=== PATIENT | female | born 1985 | race Caucasian/White ===

== ENCOUNTER 2017-07-05 06:18 | Emergency (ER) | payer MEDICAID ==
[~2017-07-05] VITALS: Ht 175.3 cm; Wt 77.1 kg
[2017-07-05] MEDS ORDERED: ONDANSETRON 4 MG TAB.RAPDIS SL ONE (06:30)
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
[2017-07-05] MEDS ORDERED: ONDANSETRON 4 MG TAB.RAPDIS ONE (06:35)
--- NOTE | 2017-07-05 06:40 | NUR ---
DR. RAY AT BEDSIDE FOR EVAL.
[2017-07-05] MEDS ORDERED: MECLIZINE HCL 25 MG TABLET ONE (06:47)
[2017-07-05] MEDS ORDERED: MECLIZINE HCL 25 MG TABLET PO ONE (07:00)
--- NOTE | 2017-07-05 07:10 | NUR ---
DR. RAY AT BEDSIDE SPEAKIN TO PT REGARDING RESULTS.
--- NOTE | 2017-07-05 07:18 | NUR ---
Patient discharged to home in stable condition. Written and verbal after care instructions given. Patient verbalizes understanding of instruction. ambulatory with a steady gait. instructed not to drive. pt verbalize understanding. pt accompanied by boyfriend.
[2017-07-05 07:19] VITALS: BP 110/54
== END 2017-07-05 07:20 | disposition home or self-care (01) ==
LOC: ER 06:18
DX: R42 Dizziness and giddiness (principal); S39.012A Strain of muscle, fascia and tendon of lower back, initial encounter; F17.200 Nicotine dependence, unspecified, uncomplicated; F10.10 Alcohol abuse, uncomplicated; Z88.0 Allergy status to penicillin; V03.90XA Pedestrian on foot injured in collision with car, pick-up truck or van, unspecified whether traffic or nontraffic accident, initial encounter; Y93.89 Activity, other specified; Y92.413 State road as the place of occurrence of the external cause; Y99.8 Other external cause status
CPT/HCPCS: 99283; A4606; J8597; Q0162; Z7610

== ENCOUNTER 2017-07-10 09:53 | Emergency (ER) | payer MEDICAID ==
[~2017-07-10] VITALS: Ht 175.3 cm; Wt 81.6 kg
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
[2017-07-10 10:26] VITALS: BP 130/60
--- NOTE | 2017-07-10 10:26 | NUR ---
Patient discharged to home in stable condition. Written and verbal after care instructions given. Patient verbalizes understanding of instruction.
== END 2017-07-10 10:27 | disposition home or self-care (01) ==
LOC: ER 09:55
DX: M70.32 Other bursitis of elbow, left elbow (principal); Z88.0 Allergy status to penicillin; F17.200 Nicotine dependence, unspecified, uncomplicated; Y93.9 Activity, unspecified
CPT/HCPCS: 99283; A4606; Z7610

== ENCOUNTER 2017-07-19 00:07 | Emergency (ER) | payer MEDICAID ==
[~2017-07-19] VITALS: Ht 175.3 cm; Wt 81.6 kg
--- NOTE | 2017-07-19 00:40 | NUR ---
Assist YULIANA Navarrete w/ pelvic exam. Pelvic swabs obtained & sent to lab. pt tolerated procedure well w/ nad noted.
[2017-07-19 00:51] LABS: APPEARANCE,URINE SL CLOUDY (CLEAR); BILIRUBIN,URINE NEGATIVE (NEGATIVE); BLOOD, URINE 3+ Ery/uL (NEGATIVE); COLOR,URINE YELLOW (YELLOW); KETONES,URINE NEGATIVE (NEGATIVE); LEUKOCYTE ESTERASE ,URINE 1+ (NEGATIVE); NITRITE, URINE NEGATIVE (NEGATIVE); PH,URINE 5.5 (5.0-8.0); PROTEIN,URINE TRACE mg/dl (NEGATIVE); UGLUCOSE NEGATIVE (NEGATIVE); UROBILINOGEN,URINE 0.2 EU/dL (0.2)
[2017-07-19 00:59] LABS: BACTERIA,URINE 1+ /HPF (None Seen); SQUAMOUS EPITHELIAL CELL,UR Many /HPF (None Seen)
[2017-07-19 01:05] VITALS: BP 128/82
== END 2017-07-19 01:05 | disposition home or self-care (01) ==
LOC: ER 00:07
DX: B00.9 Herpesviral infection, unspecified (principal); R82.99 Other abnormal findings in urine; F17.200 Nicotine dependence, unspecified, uncomplicated; Z88.0 Allergy status to penicillin
CPT/HCPCS: 81001; 84703; 87070; 87077; 87081; 87086; 87110; 87210; 99284; 99406; A4606; Z7610; 81000-TC

== ENCOUNTER 2021-04-04 20:53 | Emergency (ER) | payer OTHER ==
[~2021-04-04] VITALS: Ht 175.3 cm; Wt 86.2 kg
--- NOTE | 2021-04-04 20:56 | NUR ---
pt bibself c/o vaginal bleeding x today. Pt aaox4 breathing evenly and unlabored. Pt states that she "discovered she was pregnat 1.5 weeks ago, but is unsure of how far along she is". Pt attached to monitor and pox. Pt denies trauma or pain. Pt given blanket and call light within reach
--- NOTE | 2021-04-04 21:35 | NUR ---
URINE COLLECTED, SENT TO LAB.
--- NOTE | 2021-04-04 21:37 | NUR ---
lab at bedside
[2021-04-04 21:39] LABS: BILIRUBIN,URINE MODERATE (NEGATIVE); COLOR,URINE AMBER (YELLOW); LEUKOCYTE ESTERASE ,URINE Negative (NEGATIVE); NITRITE, URINE Negative (NEGATIVE); PH,URINE 5.5 (5.0-8.0); PROTEIN,URINE >=300 mg/dl (NEGATIVE); UGLUCOSE Negative (NEGATIVE)
[2021-04-04 21:44] LABS: BASOPHILS % (AUTO) 0.7 % (0.0-2.0); EOSINOPHILS % (AUTO) 1.7 % (0.0-6.0); HEMATOCRIT 35 % (33-45); HEMOGLOBIN 10.9 g/dL (11.5-14.8); LYMPHOCYTES # (AUTO) 1.7 K/uL (0.8-4.8); LYMPHOCYTES % (AUTO) 25.1 % (20.0-44.0); MEAN CORPUSCULAR HGB CONC 31 g/dl (31.0-36.0); MEAN CORPUSCULAR VOLUME 74 fL (82-100); MONOCYTES # (AUTO) 0.4 K/uL (0.1-1.30); MONOCYTES % (AUTO) 6.1 % (2.0-12.0); NEUTROPHILS # (AUTO) 4.5 K/uL (1.8-8.9); NEUTROPHILS % (AUTO) 66.4 % (43.0-81.0); PLATELET COUNT (AUTO) 354 K/uL (150-450); RED BLOOD CELL COUNT(AUTO) 4.76 MIL/uL (4.0-5.2); WHITE BLOOD COUNT (AUTO) 6.8 K/uL (4.3-11.0)
[2021-04-04 21:51] LABS: BACTERIA,URINE 1+ /HPF (None Seen); RBC,URINE TOO NUMEROUS TO COUN /HPF (0-2); WBC,URINE 0-2 /HPF (0-3)
[2021-04-04 21:53] LABS: CALCIUM, SERUM 8.3 mg/dL (8.5-10.1); CREATININE 0.8 mg/dL (0.6-1.3); POTASSIUM 3.4 mmol/L (3.5-5.1)
--- NOTE | 2021-04-04 22:36 | NUR ---
us at bedside
--- NOTE | 2021-04-04 23:29 | NUR ---
called adelia to have images read
[2021-04-04 23:36] LABS: EOSINOPHILS % (MANUAL) 1 % (0-4); LYMPHOCYTES % (MANUAL) 25 % (16-48); MONOCYTES % (MANUAL) 4 % (0-11.0); NEUTROPHILS % (MANUAL) 70 (42-76)
[2021-04-05 00:16] VITALS: BP 125/75
--- NOTE | 2021-04-05 00:16 | NUR ---
Patient discharged to home in stable condition. Written and verbal after care instructions given. Patient verbalizes understanding of instruction. Pt ambulated out of ED. VSS.
== END 2021-04-05 00:17 | disposition home or self-care (01) ==
LOC: ER 20:53
DX: O20.0 Threatened abortion (principal); Z88.0 Allergy status to penicillin; Z88.1 Allergy status to other antibiotic agents; Z91.040 Latex allergy status; Z3A.01 Less than 8 weeks gestation of pregnancy
CPT/HCPCS: 36415; 76856-TC; 80048-TC; 81001; 84702-TC; 85025-TC; 86850-TC

== ENCOUNTER 2021-04-15 14:16 | Emergency (ER) | payer OTHER ==
[~2021-04-15] VITALS: Ht 175.3 cm; Wt 83.9 kg
--- NOTE | 2021-04-15 15:08 | NUR ---
TO ER BED 16, C/O VAG BLEED, CHANGED TO GOWN, ATTACHED TO MONITOR, AWAITING MD FRANZ
--- NOTE | 2021-04-15 15:08 | NUR ---
URINE SAMPLE GIVEN AND SENT TO LAB
--- NOTE | 2021-04-15 15:11 | NUR ---
[facility] US AVAILABLE IN 40 MINUTES
[2021-04-15 15:25] LABS: BASOPHILS # (AUTO) 0.1 K/uL (0.0-0.2); BASOPHILS % (AUTO) 0.8 % (0.0-2.0); EOSINOPHILS % (AUTO) 1.9 % (0.0-6.0); HEMATOCRIT 33 % (33-45); HEMOGLOBIN 10.3 g/dL (11.5-14.8); LYMPHOCYTES # (AUTO) 2.3 K/uL (0.8-4.8); LYMPHOCYTES % (AUTO) 25.5 % (20.0-44.0); MEAN CORPUSCULAR HGB CONC 31 g/dl (31.0-36.0); MEAN CORPUSCULAR VOLUME 74 fL (82-100); MONOCYTES # (AUTO) 0.5 K/uL (0.1-1.30); MONOCYTES % (AUTO) 5.1 % (2.0-12.0); NEUTROPHILS # (AUTO) 6.1 K/uL (1.8-8.9); NEUTROPHILS % (AUTO) 66.7 % (43.0-81.0); PLATELET COUNT (AUTO) 314 K/uL (150-450); RED BLOOD CELL COUNT(AUTO) 4.43 MIL/uL (4.0-5.2); WHITE BLOOD COUNT (AUTO) 9.1 K/uL (4.3-11.0)
[2021-04-15 15:28] LABS: BILIRUBIN,URINE SMALL (NEGATIVE); COLOR,URINE YELLOW (YELLOW); LEUKOCYTE ESTERASE ,URINE Small (NEGATIVE); NITRITE, URINE Negative (NEGATIVE); PROTEIN,URINE 100 mg/dl (NEGATIVE); UGLUCOSE Negative (NEGATIVE); UROBILINOGEN,URINE 0.2 EU/dL (0.2)
[2021-04-15 15:34] LABS: CALCIUM, SERUM 8.4 mg/dL (8.5-10.1); CREATININE 0.7 mg/dL (0.6-1.3); POTASSIUM 3.6 mmol/L (3.5-5.1)
[2021-04-15 15:54] LABS: BACTERIA,URINE 3+ /HPF (None Seen); RBC,URINE 21-50 /HPF (0-2)
[2021-04-15 16:01] LABS: ALBUMIN 3.5 g/dL (3.4-5.0); BILIRUBIN,TOTAL 0.1 mg/dL (0.2-1.0); TOTAL PROTEIN, SERUM 7.2 g/dL (6.4-8.2)
[2021-04-15] MEDS ORDERED: NITR100C6 PO (16:17)
[2021-04-15 16:22] VITALS: BP 125/77
--- NOTE | 2021-04-15 16:22 | NUR ---
Patient discharged to home in stable condition. Written and verbal after care instructions given. Patient verbalizes understanding of instruction.
== END 2021-04-15 16:22 | disposition home or self-care (01) ==
LOC: ER 14:20
DX: O20.0 Threatened abortion (principal); N39.0 Urinary tract infection, site not specified; F17.200 Nicotine dependence, unspecified, uncomplicated; Z88.0 Allergy status to penicillin; Z88.1 Allergy status to other antibiotic agents; Z91.040 Latex allergy status; Z3A.00 Weeks of gestation of pregnancy not specified
CPT/HCPCS: 36415; 76856-TC; 80048-TC; 80076-TC; 81001; 84702-TC; 85025-TC; 85730-TC; 86850-TC; 87086-TC